=== PATIENT | male | born 1960 | race Caucasian/White ===

== ENCOUNTER 2016-02-29 08:20 | Emergency (ER) | payer MEDICARE, MEDICAID ==
[2016-02-29] MEDS: IPRATROPIUM/ALBUTEROL (0.5MG/3MG) NEB INH ONE (08:29)
[2016-02-29] MEDS: 0.9 % SODIUM CHLORIDE 1000ML 1,000 ML IV PRN (08:30)
--- NOTE | 2016-02-29 08:36 | Emergency Department Record ---
History of Present Illness - General Chief Complaint: Shortness of breath Stated Complaint: KOBE Time Seen by Provider: 02/29/16 08:22 Source: Patient, RN notes reviewed - History of Present Illness Initial Comments: patient SOB and denies chest pain and he uses neb four times a day and the duoneb treatment settled him down. Patient only has black stools and he takes iron and hemmoccult in the ED neg by bedside checking. MD Complaint: Shortness of breath - Related Data Home Medications Medication Instructions Recorded Confirmed Last Taken Pregabalin [Lyrica] 50 mg PO TID 12/21/14 02/29/16 09/27/15 Ferrous Sulfate [Slow Release Iron] 47.5 mg PO DAILY 09/27/15 02/29/16 09/27/15 Fluticasone/Salmeterol [Advair 1 puff INH ASDIR 09/27/15 02/29/16 09/27/15 250-50 Diskus] Furosemide [Lasix] 20 mg PO BID 09/27/15 02/29/16 09/27/15 Ipratropium [place] [Atrovent Hfa] 12.9 gm IH ASDIR 09/27/15 02/29/16 09/27/15 Multivitamin [Daily Multiple 1 each PO DAILY 09/27/15 02/29/16 09/27/15 Vitamin] Spironolactone [Aldactone] 25 mg PO DAILY 09/27/15 02/29/16 09/27/15 Albuterol Sulfate 0.083% [Neb] 3 ml NEB .EVERY 4-6 HOURS PRN 02/29/16 02/29/16 Unknown Previous Rx's Medication Instructions Recorded Omeprazole [Prilosec] 20 mg PO DAILY #30 cap.sr 06/29/13 Albuterol Sulfate [Proair Hfa] 1 - 2 puff IH .EVERY 4-6 HOURS PRN 12/21/14 #1 inhaler Azithromycin [Zithromax] 500 mg PO DAILY #7 tablet 02/29/16 Prednisone [Prednisone 10Mg] 10 mg PO ASDIR #30 tab 02/29/16 Allergies Allergy/AdvReac Type Severity Reaction Status Date / Time No Known Drug Allergies Allergy Verified 09/27/15 14:16 Review of Systems Reviewed: No additional complaints except as noted below Constitutional: Reports: As per HPI. Denies: Chills, Fever, Malaise, Night sweats, Weakness, Weight change Eyes: Reports: As per HPI. Denies: Eye discharge, Eye pain, Photophobia, Vision change ENT: Reports: As per HPI. Denies: Congestion, Dental pain, Ear pain, Epistaxis , Hearing loss, Throat pain Respiratory: Reports: As per HPI, Cough, Dyspnea. Denies: Hemoptysis, Stridor, Wheezes Cardiovascular: Reports: As per HPI. Denies: Arrhythmia, Chest pain, Dyspnea on exertion, Edema, Murmurs, Orthopnea, Palpitations, Paroxysmal nocturnal dyspnea, Rheumatic Fever, Syncope Endocrine: Reports: As per HPI. Denies: Fatigue, Heat or cold intolerance, Polydipsia, Polyuria Gastrointestinal: Reports: As per HPI. Denies: Abdominal pain, Constipation, Diarrhea, Hematemesis, Hematochezia, Melena, Nausea, Vomiting Genitourinary: Reports: As per HPI. Denies: Dysuria, Frequency, Hematuria, Incontinence, Retention, Testicular pain, Testicular mass, Urgency Musculoskeletal: Reports: As per HPI. Denies: Arthralgia, Back pain, Gout, Joint swelling, Myalgia, Neck pain Skin: Reports: As per HPI. Denies: Bruising, Change in color, Change in hair/ nails, Lesions, Pruritus, Rash Neurological: Reports: As per HPI. Denies: Abnormal gait, Confusion, Headache, Numbness, Paresthesias, Seizure, Tingling, Tremors, Vertigo, Weakness Psychiatric: Reports: As per HPI. Denies: Anxiety, Auditory hallucinations, Depression, Homicidal thoughts, Suicidal thoughts, Visual hallucinations Hematological/Lymphatic: Reports: As per HPI. Denies: Anemia, Blood Clots, Easy bleeding, Easy bruising, Swollen glands Past Medical History - SOCIAL HISTORY Smoking Status: Heavy tobacco smoker (>10/day) Drug Use Detail:: Marijuana - RESPIRATORY Hx Respiratory Disorders: Yes Hx Asthma: No Hx Bronchitis: No Hx COPD: No Hx Dyspnea: Yes Hx Pneumonia: No Hx Pulmonary Embolism: No Hx Sleep Apnea: No Hx Tuberculosis: No - CARDIOVASCULAR Hx Cardio Disorders: Yes Hx Abnormal EKG: No Hx Cardiac Cath: No Hx Chest Pain: No Hx CHF: No Hx Deep Vein Thrombosis: No Hx Edema: No Hx Heart Attack: No Hx Hypertension: Yes Hx Hypotension: No Hx Irregular Heartbeat: No Hx Palpitations: No Hx Pacemaker/Defib: No Hx Vascular Disease: No - NEURO Hx Neuro Disorders: Yes Hx Brain Tumor: No Hx CVA: No Hx Dementia: No Hx Dizziness: No Hx Headaches: No Hx Neuropathy: Yes Hx Parkinson's Disease: No Hx Seizures: No Hx Speech Problem: No Hx TIA: No - GI Hx GI Disorders: Yes Hx Abdominal Pain: Yes Hx Celiac Disease: No Hx Crohn's Disease: No Hx Diverticulitis: No Hx GI Bleed: No Hx Reflux: Yes Hx Hepatitis/Jaundice: No Hx Hiatal Hernia: No Hx Irritable Bowel: No Hx Liver Disease: Yes Hx Nausea/Vomiting: No Hx Obstructive Bowel: No Hx Pancreatitis: No Hx Rectal Bleeding: No Hx Ulcer: No Hx Wt Loss/Wt Gain: No - Hx Genitourinary Disorders: No Hx Bladder Problem: No Hx Dialysis: No Hx Kidney Stones: No Hx Prostate Problems: No Hx Renal Disease: No Hx UTI: No - ENDOCRINE Hx Endocrine Disorders: No Hx Diabetes: No Hx Thyroid Disease: No - MUSCULOSKELETAL Hx Musculoskeletal Disorders: Yes Hx Arthritis: No Hx Back Injury: No Hx Fibromyalgia: No Hx Gout: Yes (knuckles) Hx Musculoskeletal Disease: No Hx Osteoporosis: No - PSYCH Hx Psych Problems: Yes Hx Anxiety: No Hx Behavior Problems: No Hx Depression: Yes Hx Emotional Abuse: No Hx Sexual Abuse: No Hx Suicide Attempt: No - HEMATOLOGY/ONCOLOGY Hx Hematology/Oncology Disorders: Yes Hx Anemia: Yes Hx Blood Disorders: No Hx Bruising: No Hx Cancer: No Hx Chemotherapy: No Hx Radiation Therapy: No Hx Clotting Problems: No Hx Sickle Cell Disease: No Hx Unexplained Bleeding: No Hx Blood Transfusions: Yes Hx Blood Transfusion Reaction: No Family Medical History Hx Cancer: Father, Mother Hx Diabetes: Mother, Brother/Sister Hx Heart Disease: Brother/Sister Physical Exam - General General Appearance: Alert, Oriented x3, Cooperative, No acute distress - Head Head exam: Normal inspection - Eye Eye exam: Normal appearance, PERRL Pupils: Normal accommodation - ENT ENT exam: Normal exam, Mucous membranes moist, Normal external ear exam, Normal orophraynx, TM's normal bilaterally Ear exam: Normal external inspection. negative: External canal tenderness Nasal Exam: Normal inspection. negative: Discharge, Sinus tenderness Mouth exam: Normal external inspection, Tongue normal Teeth exam: Normal inspection. negative: Dental caries Throat exam: Normal inspection. negative: Tonsillar erythema, Tonsillar exudate - Neck Neck exam: Normal inspection, Full ROM. negative: Tenderness - Respiratory Respiratory exam: Respiratory distress, Wheezes - Cardiovascular Cardiovascular Exam: Regular rate, Normal rhythm, Normal heart sounds - GI/Abdominal GI/Abdominal exam: Soft, Normal bowel sounds. negative: Tenderness - Rectal Rectal exam: Deferred - exam: Deferred - Extremities Extremities exam: Normal inspection, Full ROM, Normal capillary refill. negative: Tenderness - Back Back exam: Reports: Normal inspection, Full ROM. Denies: Muscle spasm, Rash noted, Tenderness - Neurological Neurological exam: Alert, Normal gait, Oriented X3, Reflexes normal - Psychiatric Psychiatric exam: Normal affect, Normal mood - Skin Skin exam: Dry, Intact, Normal color, Warm Course Vital Signs 02/29/16 08:31 Pulse Rate 93 H Respiratory 20 Rate Pulse Ox 93 L - Reevaluation(s) Reevaluation #1: discussed admission with patient and he refused to stay. Risk discussed and said he would take his chances 02/29/16 12:18 Medical Decision Making - Data Complexity MDM Data: Labs Ordered and/or Reviewed (trop I indeterminate), X-Ray Ordered and /or Reviewed (No acute changes), EKG Ordered and/or Reviewed (No acute changes) - Lab Data Result diagrams: 02/29/16 08:25 02/29/16 08:25 Disposition Clinical Impression: COPD exacerbation, Bronchitis, Elevated troponin I level Instructions: Dyspnea (ED), Acute Bronchitis (ED) Additional Instructions: follow up with Dr. Le in 2 days on use nebulizer every 4 hours stop cigs return if worse Prescriptions: Prednisone [Prednisone 10Mg] 10 mg PO ASDIR #30 tab Azithromycin [Zithromax] 500 mg PO DAILY #7 tablet Forms: Patient Portal Access Time of Disposition: 12:29
[2016-02-29 08:43] LABS: HEMATOCRIT 43.7 % (42.0-52.0); HEMOGLOBIN 14.9 gm/dl (14.0-18.0); MEAN CELL VOLUME 87.8 fl (81-97); MEAN CORPUSCULAR HEMOGLOBIN 29.9 pg (27-33); MEAN CORPUSCULAR HGB CONC 34.1 g/dl (32-36); MEAN PLATELET VOLUME 12.7 fl (7.4-10.4); PLATELET COUNT 95 K/uL (130-400); RED BLOOD COUNT 4.98 M/uL (4.40-5.70); RED CELL DISTRIBUTION WIDTH 17.9 % (11.5-14.5); WHITE BLOOD COUNT W/O DIFF 7.8 K/uL (4.2-12.2)
[2016-02-29 08:49] LABS: INR 1.06; PARTIAL THROMBOPLASTIN TIME 33.3 SECONDS (24.5-39.1)
[2016-02-29 08:50] LABS: ANION GAP 14.2 (7-16); BLOOD UREA NITROGEN 12 mg/dL (9-20); CARBON DIOXIDE 22.8 mmol/L (22-30); CREATININE 0.9 mg/dL (0.66-1.25); EST GLOMERULAR FILTRATION RATE > 60 ml/min; GLUCOSE,RANDOM 109 mg/dL (70-110)
[2016-02-29 08:51] LABS: ALBUMIN 4.5 gm/dL (3.5-5.0); BILIRUBIN,TOTAL 1.59 mg/dL (0.2-1.3); TOTAL PROTEIN 7.9 gm/dL (6.3-8.2)
[2016-02-29 09:02] LABS: CKMB 1.8 ug/L (0-6)
[2016-02-29 09:04] LABS: ANISOCYTOSIS 1+; PLATELET ESTIMATE DECREASED (NORMAL); TROPONIN I < 0.050 ng/mL (0.00-0.034)
[2016-02-29] MEDS: 0.9 % SODIUM CHLORIDE 1000ML 1,000 ML IV ONE (10:52)
[2016-02-29] MEDS: METHYLPREDNISOLONE PF 125MG/VIAL IVP ONE (12:20)
[2016-02-29] MEDS: AZITHROMYCIN 500 MG TABLET PO ONE (12:34)
--- NOTE | 2016-03-04 14:17 | RADIOLOGY REPORT ---
EXAM: CHEST, TWO VIEWS HISTORY: DIFFICULTY BREATHING. TECHNIQUE: Frontal and lateral views of the chest were performed. Comparison: 12/21/14. FINDINGS: The heart size is normal. There is no pulmonary vascular congestion. There is persistent blunting of the left costophrenic angle consistent with scar tissue. No acute type infiltrate or pleural effusion. IMPRESSION: REMOTE SCARRING IN THE LEFT COSTOPHRENIC ANGLE/LOWER LOBE. NO ACUTE PROCESS. JOB NUMBER: [id number] [facility]
== END 2016-02-29 12:44 | disposition home or self-care (01) ==
LOC: ER 08:20
DX: J44.1 Chronic obstructive pulmonary disease with (acute) exacerbation (principal); J20.9 Acute bronchitis, unspecified; J44.0 Chronic obstructive pulmonary disease with (acute) lower respiratory infection; R79.89 Other specified abnormal findings of blood chemistry; I10 Essential (primary) hypertension; F17.210 Nicotine dependence, cigarettes, uncomplicated
CPT/HCPCS: 71020; 80048; 80076; 82272; 82553; 83690; 84484; 85027; 85610; 85730; 93005; 93010; 94640; 96374; 99284; J2930

== ENCOUNTER 2016-07-25 09:20 | Emergency (ER) | payer MEDICARE, MEDICAID ==
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
[2016-07-25] MEDS ORDERED: KETOROLAC 60 MG/2 ML VIAL IM STA (09:47)
[2016-07-25] MEDS ORDERED: DIAZEPAM 5 MG/1 ML TUBX IM ONE (09:47)
[2016-07-25 10:12] LABS: BASO % 1.1 % (0-6); EOS % 10.6 % (0-6); HEMATOCRIT 42.8 % (42.0-52.0); HEMOGLOBIN 13.7 gm/dl (14.0-18.0); LYMPH % 13.5 % (16-45); MEAN CELL VOLUME 89.5 fl (81-97); MEAN CORPUSCULAR HEMOGLOBIN 28.6 pg (27-33); MEAN PLATELET VOLUME 12.4 fl (7.4-10.4); MONO % 7.8 % (0-9); PLATELET COUNT 116 K/uL (130-400); RED BLOOD COUNT 4.78 M/uL (4.40-5.70); RED CELL DISTRIBUTION WIDTH 14.9 % (11.5-14.5); WHITE BLOOD COUNT W/O DIFF 5.5 K/uL (4.2-12.2)
[2016-07-25 10:21] LABS: ALBUMIN 3.9 gm/dL (3.5-5.0); ALKALINE PHOSPHATASE 97 U/L (38-126); ALT/SGPT 17 U/L (21-72); AST/SGOT 15 U/L (17-59); BILIRUBIN,TOTAL 0.59 mg/dL (0.2-1.3); BLOOD UREA NITROGEN 17 mg/dL (9-20); CREATININE 0.8 mg/dL (0.66-1.25); EST GLOMERULAR FILTRATION RATE > 60 ml/min; GLUCOSE,RANDOM 91 mg/dL (70-110); LIPASE 199 U/L (23-300); TOTAL PROTEIN 7.1 gm/dL (6.3-8.2)
[2016-07-25] MEDS ORDERED: HYDROMORPHONE HCL 1 MG/ML CPJ IM ONE (10:46)
[2016-07-25] MEDS ORDERED: ONDANSETRON HCL IV 4 MG/2 ML VIAL IM ONE (10:47)
== END 2016-07-25 11:23 | disposition home or self-care (01) ==
LOC: ER 09:20
DX: S39.012A Strain of muscle, fascia and tendon of lower back, initial encounter (principal); X58.XXXA Exposure to other specified factors, initial encounter; Y92.009 Unspecified place in unspecified non-institutional (private) residence as the place of occurrence of the external cause; I10 Essential (primary) hypertension; J44.9 Chronic obstructive pulmonary disease, unspecified; F17.210 Nicotine dependence, cigarettes, uncomplicated
CPT/HCPCS: 99283; 96372; 99284; 83690; 85025; 80076; 80048; J2405; J1170; J1885; J3360

== ENCOUNTER 2016-08-17 11:47 | Emergency (ER) | payer MEDICARE, MEDICAID ==
[2016-08-17] MEDS: KETOROLAC 30 MG/ML VIAL IM ONE (12:18)
[2016-08-17] MEDS: ORPHENADRINE CITRATE 60MG/2ML VIAL IM ONE (12:18)
--- NOTE | 2016-08-17 12:28 | Emergency Department Record ---
History of Present Illness - General Chief Complaint: Back Pain/Injury Stated Complaint: BACK PAIN Time Seen by Provider: 08/17/16 12:07 Source: Patient Mode of Arrival: EMS Limitations: No limitations - History of Present Illness Initial Comments: The patient is here due to worsening of his chronic back pain. He was last in the ER about 3 weeks ago for the same thing. The pain did improve until he ran out of his Oxycontin pain medicines and then it returned. It is a sharp aching pain in his R SI region that intermittently radiates to the back of his R leg. The pain is much better with lying still but worse with any movement and walking. He denies any numbness to his R leg and is able to urinate and have normal BM's. The patient denies any new symptoms and does have an appointment with his PCP in 2 days. MD Complaint: Back pain Onset/Timin -: Week(s) Similar Symptoms Previously: Yes Place: Home Radiation: Right leg Severity: Moderate Severity scale (1-10): 9 Quality: Sharp Consistency: Constant Improves With: None Worsens With: Movement, Walking Context: Unknown Associated Symptoms: Denies other symptoms Treatments Prior to Arrival: Prescription analgesics - Related Data Home Medications Medication Instructions Recorded Confirmed Last Taken Pregabalin [Lyrica] 50 mg PO TID 12/21/14 08/17/16 08/17/16 Ferrous Sulfate [Slow Release Iron] 47.5 mg PO DAILY 09/27/15 08/17/16 08/17/16 Fluticasone/Salmeterol [Advair 1 puff INH ASDIR 09/27/15 08/17/16 08/17/16 250-50 Diskus] Furosemide [Lasix] 20 mg PO BID 09/27/15 08/17/16 08/17/16 Ipratropium [place] [Atrovent Hfa] 12.9 gm IH ASDIR 09/27/15 08/17/16 08/17/16 Multivitamin [Daily Multiple 1 each PO DAILY 09/27/15 08/17/16 08/17/16 Vitamin] Spironolactone [Aldactone] 25 mg PO DAILY 09/27/15 08/17/16 08/17/16 Albuterol Sulfate 0.083% [Neb] 3 ml NEB .EVERY 4-6 HOURS PRN 02/29/16 08/17/1608/17/17 Previous Rx's Medication Instructions Recorded Omeprazole [Prilosec] 20 mg PO DAILY #30 cap.sr 06/29/13 Albuterol Sulfate [Proair Hfa] 1 - 2 puff IH .EVERY 4-6 HOURS PRN 12/21/14 #1 inhaler Tramadol HCl 50 mg PO Q8H #9 tab 08/17/16 Allergies Allergy/AdvReac Type Severity Reaction Status Date / Time No Known Drug Allergies Allergy Verified 08/17/16 11:51 Travel Screening - Travel/Exposure Within Last 30 Days Have you traveled within the last 30 days?: No - Travel/Exposure Within Last Year Have you traveled outside the [place] in the last year?: No - Additonal Travel Details Have you been exposed to anyone with a communicable illness?: No - Travel Symptoms Symptom Screening: None Review of Systems Constitutional: Denies: Chills, Fever Eyes: Denies: Eye discharge ENT: Denies: Congestion Respiratory: Denies: Cough, Dyspnea Past Medical History - SOCIAL HISTORY Smoking Status: Current every day smoker Alcohol Use: None Drug Use: Occassional Drug Use Detail:: Marijuana - RESPIRATORY Hx Respiratory Disorders: Yes Hx Asthma: No Hx Bronchitis: Yes Hx COPD: Yes Hx Dyspnea: Yes Hx Pneumonia: No Hx Pulmonary Embolism: No Hx Sleep Apnea: No Hx Tuberculosis: No - CARDIOVASCULAR Hx Cardio Disorders: Yes Hx Abnormal EKG: No Hx Cardiac Cath: No Hx Chest Pain: No Hx CHF: No Hx Deep Vein Thrombosis: No Hx Edema: No Hx Heart Attack: No Hx Hypertension: Yes Hx Hypotension: No Hx Irregular Heartbeat: No Hx Palpitations: No Hx Pacemaker/Defib: No Hx Vascular Disease: No - NEURO Hx Neuro Disorders: Yes Hx Brain Tumor: No Hx CVA: No Hx Dementia: No Hx Dizziness: No Hx Headaches: No Hx Neuropathy: Yes Hx Parkinson's Disease: No Hx Seizures: No Hx Speech Problem: No Hx TIA: No - GI Hx GI Disorders: Yes Hx Abdominal Pain: Yes Hx Celiac Disease: No Hx Crohn's Disease: No Hx Diverticulitis: No Hx GI Bleed: No Hx Reflux: Yes Hx Hepatitis/Jaundice: No Hx Hiatal Hernia: No Hx Irritable Bowel: No Hx Liver Disease: Yes Hx Nausea/Vomiting: No Hx Obstructive Bowel: No Hx Pancreatitis: No Hx Rectal Bleeding: No Hx Ulcer: No Hx Wt Loss/Wt Gain: No - Hx Genitourinary Disorders: No Hx Bladder Problem: No Hx Dialysis: No Hx Kidney Stones: No Hx Prostate Problems: No Hx Renal Disease: No Hx UTI: No - ENDOCRINE Hx Endocrine Disorders: No Hx Diabetes: No Hx Thyroid Disease: No - MUSCULOSKELETAL Hx Musculoskeletal Disorders: Yes Hx Arthritis: No Hx Back Injury: No Hx Fibromyalgia: No Hx Gout: Yes (knuckles) Hx Musculoskeletal Disease: No Hx Osteoporosis: No - PSYCH Hx Psych Problems: Yes Hx Anxiety: No Hx Behavior Problems: No Hx Depression: Yes Hx Emotional Abuse: No Hx Sexual Abuse: No Hx Suicide Attempt: No - HEMATOLOGY/ONCOLOGY Hx Hematology/Oncology Disorders: Yes Hx Anemia: Yes Hx Blood Disorders: No Hx Bruising: No Hx Cancer: No Hx Chemotherapy: No Hx Radiation Therapy: No Hx Clotting Problems: No Hx Sickle Cell Disease: No Hx Unexplained Bleeding: No Hx Blood Transfusions: Yes Hx Blood Transfusion Reaction: No Family Medical History Any Significant Family History?: Yes Hx Cancer: Father, Mother Hx Diabetes: Mother, Brother/Sister Hx Heart Disease: Brother/Sister Physical Exam - General General Appearance: Alert, Oriented x3, Cooperative, No acute distress - Head Head exam: Atraumatic, Normocephalic, Normal inspection - Eye Eye exam: Normal appearance, PERRL - Neck Neck exam: Normal inspection, Full ROM. negative: Tenderness - Respiratory Respiratory exam: Normal lung sounds bilaterally. negative: Respiratory distress - Cardiovascular Cardiovascular Exam: Regular rate, Normal rhythm, Normal heart sounds - GI/Abdominal GI/Abdominal exam: Soft, Normal bowel sounds. negative: Tenderness - Extremities Extremities exam: Tenderness (There is mild tenderness and bruising to the lateral R ankle due to a fall a few days ago.). negative: Normal inspection - Neurological Neurological exam: Alert, Normal gait, Oriented X3, Reflexes normal, Other ( There is a postive SLR test to the R leg at 70 degrees. Neg SLR L.). negative: Abnormal gait, Altered, Motor sensory deficit - Psychiatric Psychiatric exam: negative: Anxious, Depressed Course Vital Signs 08/17/16 11:54 Temperature 98 F Pulse Rate 74 Respiratory 18 Rate Blood Pressure 108/76 Pulse Ox 97 - Reevaluation(s) Reevaluation #1: The patient is doing better at this time. He is ambulating in the ED with no difficulty or limping. I did explain to him that I could get him a pain shot and he is trying to find a ride home. 08/17/16 14:13 Reevaluation #2: The patient does have a ride here and we will discharge the patient. 08/17/16 14:16 Medical Decision Making - Data Complexity MDM Data: X-Ray Ordered and/or Reviewed - Radiology Data Radiology results: Report reviewed (R ankle: Neg LS Spine: No acute changes.) Disposition Disposition: Discharge Clinical Impression: Chronic back pain Qualifiers: Back pain location: low back pain Back pain laterality: right Sciatica presence : unspecified whether sciatica present Qualified Code(s): M54.5 - Low back pain Disposition: Home, Self-Care Condition: (2) Stable Instructions: Chronic Back Pain (ED) Additional Instructions: Please continue your regular medicines and use the Tramadol for pain. Please see your PCP in 2 days as planned. Return to the ER for any worsening pain, weakness, numbness, or any bowel or bladder issues. Prescriptions: Tramadol HCl 50 mg PO Q8H #9 tab Forms: Patient Portal Access Time of Disposition: 14:18 Quality - Quality Measures Quality Measures: N/A - Blood Pressure Screening View Details: Yes Blood Pressure Classification: Pre-Hypertensive BP Reading Systolic Measurement: 136 Diastolic Measurement: 81 Screening for High Blood Pressure: < Pre-Hypertensive BP, F/U Documented > [ G8950] Pre-Hypertensive Follow-up Interventions: Follow-up with rescreen every year.
[2016-08-17] MEDS: MORPHINE SULFATE 5 MG/ML PFS IM ONE (14:10)
[2016-08-17] MEDS: ONDANSETRON 4 MG ODT TABLET SL ONE (14:10)
--- NOTE | 2016-08-18 08:04 | RADIOLOGY REPORT ---
EXAM: RIGHT ANKLE COMPLETE HISTORY: LATERAL PAIN AND BRUISING TWO DAYS POST INJURY. TECHNIQUE: Three views of the right ankle were obtained. Comparison: None. Encounter: Initial. FINDINGS: There is normal bone mineralization. No acute fracture, dislocation , or destructive bone lesion is seen. There is a segment of osseous bridging between the distal shafts of the tibia and fibula having a chronic appearance. There are mild degenerative changes of the ankle mortise. Mild degenerative changes of the tibiotalar joint are also noted. Mild lateral soft tissue swelling. IMPRESSION: 1. NO ACUTE FRACTURE NOR DISLOCATION. 2. OSSEOUS BRIDGING BETWEEN THE DISTAL SHAFTS OF THE TIBIA AND FIBULA LIKELY RELATING TO REMOTE TRAUMA. 3. MILD LATERAL SOFT TISSUE SWELLING. 4. MILD DEGENERATIVE CHANGES. JOB NUMBER: [id number] [facility]
--- NOTE | 2016-08-18 08:24 | RADIOLOGY REPORT ---
EXAM: LUMBAR SPINE, AP AND LATERAL VIEWS HISTORY: RIGHT HIP PAIN EXTENDING INTO RIGHT LOWER EXTREMITY. TECHNIQUE: AP and lateral views of the lumbar spine were obtained as well as a spot lateral view of the lumbosacral junction. Comparison: CT of the abdomen and pelvis with contrast dated 09/05/14. FINDINGS: There are five non-rib bearing lumbar type vertebra. Minor dextroconvex curvature is identified centered at the L3-L4 level. There is equivocal anterolisthesis of L4 and L5. The vertebral bodies are otherwise normal in alignment and height. No acute fracture nor destructive bone lesion is seen. Mild multilevel degenerative disk/degenerative end plate changes are present most pronounced at the L4-L5 level. Multilevel bilateral facet arthropathy is present most pronounced at the lower lumbar levels where they are moderate to severe. There is diffuse atherosclerosis of the abdominal aorta without aneurysmal dilatation. IMPRESSION: 1. NO ACUTE FRACTURE NOR SUSPICIOUS SUBLUXATION. 2. MULTILEVEL DEGENERATIVE CHANGES, DETAILED ABOVE ASSOCIATED WITH MILD DEXTROCONVEX CURVATURE CENTERED AT THE L3-L4 LEVEL. MINIMAL ANTEROLISTHESIS OF L4 AND L5 LIKELY RELATING TO DEGENERATIVE DISK AND FACET ARTHROPATHY. JOB NUMBER: [id number] [facility]
== END 2016-08-17 14:41 | disposition home or self-care (01) ==
LOC: ER 11:47
DX: G89.29 Other chronic pain (principal); M54.5 Low back pain; M25.571 Pain in right ankle and joints of right foot; M25.551 Pain in right hip
CPT/HCPCS: 99283; 96372; 99284; 73610; 72100; J1885; J2270; J2360

== ENCOUNTER 2016-09-12 10:41 | Emergency (ER) | payer MEDICARE, MEDICAID ==
[2016-09-12] MEDS ORDERED: KETOROLAC 30 MG/ML VIAL IM ONE (11:12)
[2016-09-12] MEDS ORDERED: ORPHENADRINE CITRATE 60MG/2ML VIAL IM ONE (11:12)
[2016-09-12] MEDS ORDERED: TRAMADOL HCL 50 MG TABLET PO ONE (11:12)
--- NOTE | 2016-09-12 11:28 | Emergency Department Record ---
History of Present Illness - General Chief Complaint: Back Pain/Injury Stated Complaint: BACK PAIN Time Seen by Provider: 09/12/16 11:03 Source: Patient Mode of Arrival: Ambulatory Limitations: No limitations - History of Present Illness Initial Comments: pt is c/o flaring up of his chronic sciatica. he has r leg numbness which is not new. he has no problem with bowel or bladder MD Complaint: Back pain Onset/Timin -: Month(s) Similar Symptoms Previously: Yes Radiation: Right leg Severity scale (1-10): 8 Quality: Sharp Consistency: Constant Improves With: None Worsens With: Movement Context: Other Associated Symptoms: Numbness Treatments Prior to Arrival: NSAIDS, Prescription analgesics - Related Data Home Medications Medication Instructions Recorded Confirmed Last Taken Pregabalin [Lyrica] 50 mg PO TID 12/21/14 09/12/16 08/17/16 Ferrous Sulfate [Slow Release Iron] 47.5 mg PO DAILY 09/27/15 09/12/16 08/17/16 Fluticasone/Salmeterol [Advair 1 puff INH ASDIR 09/27/15 09/12/16 08/17/16 250-50 Diskus] Furosemide [Lasix] 20 mg PO BID 09/27/15 09/12/16 08/17/16 Ipratropium [place] [Atrovent Hfa] 12.9 gm IH ASDIR 09/27/15 09/12/16 08/17/16 Multivitamin [Daily Multiple 1 each PO DAILY 09/27/15 09/12/16 08/17/16 Vitamin] Spironolactone [Aldactone] 25 mg PO DAILY 09/27/15 09/12/16 08/17/16 Albuterol Sulfate 0.083% [Neb] 3 ml NEB .EVERY 4-6 HOURS PRN 02/29/16 09/12/16 08/17/16 Previous Rx's Medication Instructions Recorded Omeprazole [Prilosec] 20 mg PO DAILY #30 cap.sr 06/29/13 Albuterol Sulfate [Proair Hfa] 1 - 2 puff IH .EVERY 4-6 HOURS PRN 12/21/14 #1 inhaler Tramadol HCl [Ultram] 50 mg PO Q8H #7 tab 09/12/16 Allergies Allergy/AdvReac Type Severity Reaction Status Date / Time No Known Drug Allergies Allergy Verified 08/17/16 11:51 Travel Screening - Travel/Exposure Within Last 30 Days Have you traveled within the last 30 days?: No - Travel/Exposure Within Last Year Have you traveled outside the [place] in the last year?: No - Additonal Travel Details Have you been exposed to anyone with a communicable illness?: No Review of Systems Reviewed: No additional complaints except as noted below Constitutional: Reports: As per HPI. Denies: Chills, Fever, Malaise, Night sweats, Weakness, Weight change Eyes: Reports: As per HPI. Denies: Eye discharge, Eye pain, Photophobia, Vision change ENT: Reports: As per HPI. Denies: Congestion, Dental pain, Ear pain, Epistaxis , Hearing loss, Throat pain Respiratory: Reports: As per HPI. Denies: Cough, Dyspnea, Hemoptysis, Stridor, Wheezes Cardiovascular: Reports: As per HPI. Denies: Arrhythmia, Chest pain, Dyspnea on exertion, Edema, Murmurs, Orthopnea, Palpitations, Paroxysmal nocturnal dyspnea, Rheumatic Fever, Syncope Endocrine: Reports: As per HPI. Denies: Fatigue, Heat or cold intolerance, Polydipsia, Polyuria Gastrointestinal: Reports: As per HPI. Denies: Abdominal pain, Constipation, Diarrhea, Hematemesis, Hematochezia, Melena, Nausea, Vomiting Genitourinary: Reports: As per HPI. Denies: Dysuria, Frequency, Hematuria, Incontinence, Retention, Testicular pain, Testicular mass, Urgency Musculoskeletal: Reports: As per HPI. Denies: Arthralgia, Back pain, Gout, Joint swelling, Myalgia, Neck pain Skin: Reports: As per HPI. Denies: Bruising, Change in color, Change in hair/ nails, Lesions, Pruritus, Rash Neurological: Reports: As per HPI. Denies: Abnormal gait, Confusion, Headache, Numbness, Paresthesias, Seizure, Tingling, Tremors, Vertigo, Weakness Psychiatric: Reports: As per HPI. Denies: Anxiety, Auditory hallucinations, Depression, Homicidal thoughts, Suicidal thoughts, Visual hallucinations Hematological/Lymphatic: Reports: As per HPI. Denies: Anemia, Blood Clots, Easy bleeding, Easy bruising, Swollen glands Past Medical History - SOCIAL HISTORY Smoking Status: Current every day smoker Alcohol Use: None Drug Use Detail:: Marijuana - RESPIRATORY Hx Respiratory Disorders: Yes Hx Asthma: No Hx Bronchitis: Yes Hx COPD: Yes Hx Dyspnea: Yes Hx Pneumonia: No Hx Pulmonary Embolism: No Hx Sleep Apnea: No Hx Tuberculosis: No - CARDIOVASCULAR Hx Cardio Disorders: Yes Hx Abnormal EKG: No Hx Cardiac Cath: No Hx Chest Pain: No Hx CHF: No Hx Deep Vein Thrombosis: No Hx Edema: No Hx Heart Attack: No Hx Hypertension: Yes Hx Hypotension: No Hx Irregular Heartbeat: No Hx Palpitations: No Hx Pacemaker/Defib: No Hx Vascular Disease: No - NEURO Hx Neuro Disorders: Yes Hx Brain Tumor: No Hx CVA: No Hx Dementia: No Hx Dizziness: No Hx Headaches: No Hx Neuropathy: Yes Hx Parkinson's Disease: No Hx Seizures: No Hx Speech Problem: No Hx TIA: No - GI Hx GI Disorders: Yes Hx Abdominal Pain: Yes Hx Celiac Disease: No Hx Crohn's Disease: No Hx Diverticulitis: No Hx GI Bleed: No Hx Reflux: Yes Hx Hepatitis/Jaundice: No Hx Hiatal Hernia: No Hx Irritable Bowel: No Hx Liver Disease: Yes Hx Nausea/Vomiting: No Hx Obstructive Bowel: No Hx Pancreatitis: No Hx Rectal Bleeding: No Hx Ulcer: No Hx Wt Loss/Wt Gain: No - Hx Genitourinary Disorders: No Hx Bladder Problem: No Hx Dialysis: No Hx Kidney Stones: No Hx Prostate Problems: No Hx Renal Disease: No Hx UTI: No - ENDOCRINE Hx Endocrine Disorders: No Hx Diabetes: No Hx Thyroid Disease: No - MUSCULOSKELETAL Hx Musculoskeletal Disorders: Yes Hx Arthritis: No Hx Back Injury: No Hx Fibromyalgia: No Hx Gout: Yes (knuckles) Hx Musculoskeletal Disease: No Hx Osteoporosis: No - PSYCH Hx Psych Problems: Yes Hx Anxiety: No Hx Behavior Problems: No Hx Depression: Yes Hx Emotional Abuse: No Hx Sexual Abuse: No Hx Suicide Attempt: No - HEMATOLOGY/ONCOLOGY Hx Hematology/Oncology Disorders: Yes Hx Anemia: Yes Hx Blood Disorders: No Hx Bruising: No Hx Cancer: No Hx Chemotherapy: No Hx Radiation Therapy: No Hx Clotting Problems: No Hx Sickle Cell Disease: No Hx Unexplained Bleeding: No Hx Blood Transfusions: Yes Hx Blood Transfusion Reaction: No Family Medical History Any Significant Family History?: Yes Hx Cancer: Father, Mother Hx Diabetes: Mother, Brother/Sister Hx Heart Disease: Brother/Sister Physical Exam - General General Appearance: Alert, Oriented x3, Cooperative, Mild distress - Head Head exam: Normal inspection - Eye Eye exam: Normal appearance, PERRL, EOMI Pupils: Normal accommodation - ENT ENT exam: Normal exam, Mucous membranes moist, Normal external ear exam, Normal orophraynx Ear exam: Normal external inspection. negative: External canal tenderness Nasal Exam: Normal inspection. negative: Discharge, Sinus tenderness Mouth exam: Normal external inspection, Tongue normal Teeth exam: Normal inspection. negative: Dental caries Throat exam: Normal inspection. negative: Tonsillar erythema, Tonsillar exudate - Neck Neck exam: Normal inspection, Full ROM. negative: Tenderness - Respiratory Respiratory exam: Normal lung sounds bilaterally. negative: Respiratory distress - Cardiovascular Cardiovascular Exam: Regular rate, Normal rhythm, Normal heart sounds - GI/Abdominal GI/Abdominal exam: Soft, Normal bowel sounds. negative: Tenderness - Rectal Rectal exam: Deferred - exam: Deferred - Extremities Extremities exam: Normal inspection, Full ROM, Normal capillary refill. negative: Tenderness - Back Back exam: Reports: Normal inspection, Tenderness. Denies: Full ROM, Muscle spasm, Rash noted - Neurological Neurological exam: Alert, CN II-XII intact, Normal gait, Oriented X3, Reflexes normal - Psychiatric Psychiatric exam: Normal affect, Normal mood - Skin Skin exam: Dry, Intact, Normal color, Warm Course Vital Signs 09/12/16 10:46 Temperature 97.9 F Pulse Rate 80 Respiratory 20 Rate Blood Pressure 128/80 Pulse Ox 96 Disposition Disposition: Discharge Clinical Impression: Sciatica Qualifiers: Laterality: right Qualified Code(s): M54.31 - Sciatica, right side Disposition: Home, Self-Care Condition: (1) Good Instructions: Sciatica (ED) Additional Instructions: follow up with dr correia. return sooner if worse. follow up with dr duque. Prescriptions: Tramadol HCl [Ultram] 50 mg PO Q8H #7 tab Referrals: SANAM DUQUE [DOCTOR OF [facility]OP[facility]] - Forms: Patient Portal Access Quality - Quality Measures Quality Measures: N/A - Blood Pressure Screening Blood Pressure Classification: Pre-Hypertensive BP Reading Systolic Measurement: 128 Diastolic Measurement: 80 Screening for High Blood Pressure: < Normal BP, F/U Not Required > [G8783] Normal BP Follow-up Interventions: No follow-up required
== END 2016-09-12 11:55 | disposition home or self-care (01) ==
LOC: ER 10:41
DX: M54.31 Sciatica, right side (principal)
CPT/HCPCS: 99283 ×2; 96372; J1885; J2360